=== PATIENT | female | born 1980 | race Caucasian/White ===

== ENCOUNTER 2016-12-03 22:43 | Inpatient (IN) | payer OTHER ==
[~2016-12-03] VITALS: Ht 157.5 cm; Wt 54.7 kg
[~2016-12-03 22:43] MED LIST: PREN-39 PO
[2016-12-03 22:49] VITALS: Ht 157.5 cm; Wt 54.7 kg
[2016-12-03 23:08] VITALS: BP 122/78; PULSE 75; RESP 18
[2016-12-03] MEDS ORDERED: LACTATED RINGER'S 1,000 ML IV SCH (23:36)
[2016-12-04] MEDS ORDERED: OXYTOCIN 30 UNITS/LR 500 ML IV SCH
[2016-12-04] MEDS ORDERED: CEFAZOLIN 2 GM/50 ML (PMX) 50 ML IV SCH
[2016-12-04] MEDS ORDERED: AMPICILLIN 2 GM/NS (PMX) 100 ML IV ONE
[2016-12-04] MEDS ORDERED: PHENYLephrine (100 MCG/ML) 5ML SYG ONE (02:31)
[2016-12-04] MEDS ORDERED: ONDANSETRON 4 MG INJ ONE (02:31)
[2016-12-04] MEDS ORDERED: OXYTOCIN 10 UNIT INJ ONE (02:31)
[2016-12-04] MEDS ORDERED: morphine SULFATE/PF (10 MG/10 ML) INJ ONE (02:31)
--- NOTE | 2016-12-04 02:37 | TRIAGE ---
OB Triage Datetime Report Generated by CPN: 12/04/2016 02:36 Datetime: 12/04/2016 02:32 Comments: PT SITTING UP FOR SPINAL, MONITOR TRACING MATERNAL HR Datetime: 12/04/2016 02:30 Comments: PT IN OR2 Datetime: 12/04/2016 02:00 Labor Evaluation Frequency: 1.5-5 Monitor Mode: External Duration (sec)2399: 40-80 Quality: Mild Pattern: Normal: <= 5 Contractions in 10 Minutes Resting Tone Amorita: Relaxed Interventions: Side to Side; Oxygen Applied Heart Rate FHR Baseline Rate: 150 Monitor Mode: External US Variability: Moderate 6-25 bpm Accelerations: 15X15 Decelerations: Late; Variable Category: Category II Pain Assessment Pain Scale: 9 Pain Presence: Intermittent Pain Type: Contraction Pain Location: Abdomen Datetime: 12/04/2016 01:00 Labor Evaluation Frequency: 3-5 Monitor Mode: External Duration (sec)2399: 40-80 Quality: Moderate Pattern: Normal: <= 5 Contractions in 10 Minutes Resting Tone Amorita: Relaxed Interventions: Side to Side Heart Rate FHR Baseline Rate: 145 Monitor Mode: External US Variability: Moderate 6-25 bpm Accelerations: 15X15 Decelerations: Late Category: Category II Pain Assessment Pain Scale: 8 Pain Presence: Intermittent Pain Type: Contraction Pain Location: Abdomen; Back Pain Relief Measures: Comfort Measures Datetime: 12/04/2016 00:58 Vaginal Exam Dilatation (cms): 1.0 Effacement (%): 80 Station: -2 Exam By: LAN RN Membrane Status: Intact Vaginal Bleeding: Normal Show Datetime: 12/04/2016 00:40 Assessment Type: Admission Assessment Maternal Assessment Level of Consciousness: Fully Conscious DTR's/Clonus: DTRs 2+; No Clonus Headache: Denies Blurred Vision: No Respiratory Effort: Unlabored; Regular Rhythm; Equal Expansion Breath Sounds, Left: Clear and Equal Breath Sounds, Right: Clear and Equal Nausea/Vomiting: Denies RUQ Epigastric Pain: Denies Lower Extremities Edema: None Degree: None Upper Extremities Edema: None Degree: None Facial Edema: None Fall Risk Assessment History of Falling: (0) No Secondary Diagnosis: (0) No Ambulatory Aid: (0) Bedrest/Nurse Assist IV Therapy: (20) Yes Gait: (0) Normal/Bedrest/Immobile Mental Status: (0) Oriented to Own Ability Fall Score: 20 Fall Risk Score Definition: No Risk: No action required Datetime: 12/04/2016 00:11 Stage of : Labor Datetime: 12/03/2016 23:17 Vaginal Exam Dilatation (cms): 0.5 Effacement (%): 70 Station: -1 Datetime: 12/03/2016 23:11 Time of Arrival: 12/03/2016 22:37 EGA: 38.4 Arrived By: Wheelchair Arrived From: Home Chief Complaint: UC's since 1999 Movement: Present Contractions: Regular Contractions: Q2-4mins Rupture of Membranes: Denies Vaginal Bleeding: None Vaginal Discharge: Denies Recent Sexual Intercouse: Denies Abdominal Trauma: Not Applicable Patient Complaints: Contractions Time Provider Notified: 12/03/2016 23:10 Provider Notified: Dr Paredes Initial Plan: EFM X2, SVE Datetime: 12/03/2016 23:10 Presentation 'A': Cephalic
--- NOTE | 2016-12-04 02:49 | HP ---
Date/Time of Note Date/Time of Note DATE: 12/04/16 TIME: 02:48 OB - History Hx of Present Chief Complaint: contractions Estimated Due Date: Dec 13, 2016 : 2 Para: 1 Spontaneous : 0 Therapeutic : 0 Care: Good Care Ultrasounds: Normal mid trimester US Obstetrical Complications: None Medical Complications: None Past Family/Social History * Past Medical, Surgical, Family and Obstetric Histories reviewed from chart. GBS Status: Positive OB Admission Exam Vital Signs Vital Signs Vital Signs Date Time Temp Pulse Resp B/P Pulse Ox O2 Delivery O2 Flow Rate FiO2 12/03/16 23:08 97.8 75 18 122/78 Room Air Physical Exam HEENT: WNL Heart: Rhythm Normal Lungs: Clear, Equal Abdomen: WNL Extremities: Normal Reflexes: Normal Cervical Dilatation: Fingertip Effacement: 50% Station: -1 Membranes: Intact Heart Rate: 130's Accelerations: Accelerations Present Decelerations: No Decelerations Varibility: Moderate Last 72 hours Lab Results CBC & BMP 12/04/16 00:30 OB Assessment/Plan Reason for admission: section Other Assessment: Previous c/s in labor Plan: Section JONO BRIONES MD Dec 04, 2016 02:49
--- NOTE | 2016-12-04 03:34 | SIPON ---
Date/Time of Note Date/Time of Note DATE: 12/04/16 TIME: 03:32 Operative Report Preoperative Diagnosis Previous c/s in labor Postoperative Diagnosis Same Operation/Procedure Performed Repeat c/s Surgeon Jono Briones MD payroll assistant Dr Peck Anesthesia: spinal Estimated blood loss: other (500 ml) Transfusion Required none Specimen placenta Grafts/Implants none Complications none JONO BRIONES MD Dec 04, 2016 03:34
--- NOTE | 2016-12-04 03:34 | SIPON ---
Date/Time of Note Date/Time of Note DATE: 12/04/16 TIME: 03:32 Operative Report Preoperative Diagnosis Previous c/s in labor Postoperative Diagnosis Same Operation/Procedure Performed Repeat c/s Surgeon Jono Briones MD assistant to the dean Dr Peck Anesthesia: spinal Estimated blood loss: other (500 ml) Transfusion Required none Specimen placenta Grafts/Implants none Complications none JONO BRIONES MD Dec 04, 2016 03:34
[2016-12-04] MEDS ORDERED: morphine 2 MG INJ IV PRN (04:00)
[2016-12-04] MEDS ORDERED: NALOXONE (0.4 MG/ML) INJ IV PRN (04:00)
[2016-12-04] MEDS ORDERED: ONDANSETRON 4 MG INJ IV PRN (04:00)
[2016-12-04] MEDS ORDERED: DIPHENHYDRAMINE 50 MG INJ IV PRN (04:00)
[2016-12-04] MEDS ORDERED: KETOROLAC 30 MG INJ IV PRN (04:00)
[2016-12-04] MEDS ORDERED: AMPICILLIN 1 GM/NS (PMX) 50 ML IV SCH (04:00)
[2016-12-04] MEDS: LACTATED RINGER'S 1,000 ML IV SCH ×3 (05:53→21:47)
[2016-12-04] MEDS ORDERED: MISOPROSTOL 200 MCG TAB PR PRN ×2 (06:00)
[2016-12-04] MEDS ORDERED: OXYTOCIN 30 UNITS/LR 500 ML IV PRN ×2 (06:00)
[2016-12-04] MEDS ORDERED: CARBOPROST 250 MCG INJ IM PRN ×2 (06:00)
[2016-12-04] MEDS ORDERED: LANOLIN 7 GM TUBE TOP PRN (06:00)
[2016-12-04] MEDS ORDERED: OXYCODONE/ACETAMINOPHEN (5/325) TAB PO PRN ×2 (06:00)
[2016-12-04] MEDS ORDERED: METHYLERGONOVINE 0.2 MG INJ IM PRN ×2 (06:00)
[2016-12-04 06:15] VITALS: BP 115/58; PULSE 89; RESP 19
[2016-12-04] MEDS: OXYTOCIN 30 UNITS/LR 500 ML IV SCH ×2 (06:18→09:53)
[2016-12-04] MEDS ORDERED: OXYTOCIN 30 UNITS/LR 500 ML BAG IV ONE (07:00)
[2016-12-04 08:00] VITALS: BP 104/53; PULSE 79; RESP 18
[2016-12-04] MEDS: SENNA/DOCUSATE NA (8.6MG/50MG) TAB PO SCH ×2 (09:49→21:43)
[2016-12-04 12:44] VITALS: BP 94/55; PULSE 76; RESP 16
[2016-12-04 16:00] VITALS: BP 104/57; PULSE 83; RESP 17
[2016-12-04 20:00] VITALS: BP 107/54; PULSE 88; RESP 19
[2016-12-05] VITALS (8 sets, daily range): BP systolic 103–113; BP diastolic 54–71; PULSE 63–85; RESP 18–20
[2016-12-05] MEDS: IBUPROFEN 800 MG TAB PO SCH ×3 (05:45→21:25)
[2016-12-05] MEDS: LACTATED RINGER'S 1,000 ML IV SCH (05:53)
[2016-12-05] MEDS: SENNA/DOCUSATE NA (8.6MG/50MG) TAB PO SCH ×2 (10:18→21:25)
--- NOTE | 2016-12-05 19:51 | QN ---
Documentation Comment No complaint Afebrile VSS Abdomen soft ND POD #1 Stable Ambulate Advance diet. JONO BRIONES MD Dec 05, 2016 19:51
--- NOTE | 2016-12-05 19:51 | QN ---
Documentation Comment No complaint Afebrile VSS Abdomen soft ND POD #1 Stable Ambulate Advance diet. JONO BRIONES MD Dec 05, 2016 19:51
--- NOTE | 2016-12-06 05:11 | OPR ---
DATE OF OPERATION: 12/04/2016 PREOPERATIVE DIAGNOSIS: at 38 weeks plus with previous section, in labor. POSTOPERATIVE DIAGNOSIS: at 38 weeks plus with previous section, in labor. OPERATION: Repeat low transverse section. SURGEON: Jono Paredes MD SR. PAYROLL PROCESSOR: Dr. Peck. ANESTHESIA: Spinal. ANESTHESIOLOGIST: Ze Russo MD. PROCEDURE: The patient was taken to the operating room and placed on the operating table. After breen ccessful spinal anesthesia was given, the patient was placed in supine position. The area was prepa red and draped in the usual sterile fashion. Spinal anesthesia was tested and was satisfactory. Us ing a scalpel, Pfannenstiel incision was made about 2 fingerbreadths above the symphysis pubis. The incision was carried to the fascia. The fascia was incised and extended bilaterally with Jean Baptiste scis sors. Two Barber's were used to separate the fascia from the muscle. The muscle was dissected in m idline down to peritoneum. The peritoneum was secured with 2 Kellys and incised with Metzenbaum sci ssors. Using a scalpel, a small transverse incision was made on the lower segment of the uterus. U viri entering the uterine cavity, bandage scissors were inserted to extend the incision bilaterally, curved up. Baby was delivered from cephalic presentation. After suctioning clear of amniotic fluid , the baby was handed off to the team in attendance. Apgars were 9 and 9. The placenta wa s delivered without difficulty. The uterus was closed with #1 Monocryl continuous locked. After as suring hemostasis, both ovaries and tubes were inspected, looked normal. The peritoneum was closed with 2-0 Vicryl continuous. The fascia was closed with #1 Vicryl continuous in 2 segments. Subcuta neous tissue was reapproximated with 2-0 plain. The skin was closed with anayeli. ESTIMATED BLOOD LOSS: 500 mL. COUNTS: All counts were correct. Dictated By: JONO PAREDES MD GD/NTS Conf#: [id number] DID#: [id number]
[2016-12-06] MEDS: IBUPROFEN 800 MG TAB PO SCH ×3 (06:24→22:03)
[2016-12-06 06:40] VITALS: BP 117/63; PULSE 68; RESP 19
[2016-12-06 08:00] VITALS: BP 115/70; PULSE 97; RESP 18
[2016-12-06] MEDS: SENNA/DOCUSATE NA (8.6MG/50MG) TAB PO SCH ×2 (09:41→21:00)
--- NOTE | 2016-12-06 13:18 | QN ---
Documentation Comment No complaint Afebrile VSS Abdomen soft ND Stable Continue present care. JONO BRIONES MD Dec 06, 2016 13:18
--- NOTE | 2016-12-06 13:18 | QN ---
Documentation Comment No complaint Afebrile VSS Abdomen soft ND Stable Continue present care. JONO BRIONES MD Dec 06, 2016 13:18
[2016-12-06 16:30] VITALS: BP 122/69; PULSE 87; RESP 20
[2016-12-06 19:40] VITALS: BP 127/71; PULSE 81; RESP 19
[2016-12-07 04:05] VITALS: BP 112/60; PULSE 67; RESP 20
[2016-12-07] MEDS: IBUPROFEN 800 MG TAB PO SCH ×2 (06:12→14:23)
[2016-12-07 08:40] VITALS: BP 123/81; PULSE 75; RESP 17
[2016-12-07] MEDS: SENNA/DOCUSATE NA (8.6MG/50MG) TAB PO SCH (09:00)
[2016-12-07] MEDS ORDERED: DIPHTH/TET/ACEL PERTUSS (ADULT) 0.5 ML VIAL IM* ONE (09:00)
[2016-12-07 16:15] VITALS: BP 104/68; PULSE 72; RESP 17
[2016-12-07 20:00] VITALS: BP 111/75; PULSE 74; RESP 17
--- NOTE | 2016-12-07 20:57 | DS ---
Date/Time of Note Date/Time of Note DATE: 12/07/16 TIME: 20:56 Obstetrical Discharge Record Final Diagnosis Final Diagnosis: Term delivered Section Section: Repeat Condition on Discharge Physical Assessment Voiding: Yes Bowel Movement: Yes Breast: Soft, non-tender, Filling Fundus: Firm Abdomen and Incision: Incision intact Calf Tenderness: No Patient Condition: Stable JOON BRIONES MD Dec 07, 2016 20:57
--- NOTE | 2016-12-07 20:57 | DS ---
Date/Time of Note Date/Time of Note DATE: 12/07/16 TIME: 20:56 Obstetrical Discharge Record Final Diagnosis Final Diagnosis: Term delivered Section Section: Repeat Condition on Discharge Physical Assessment Voiding: Yes Bowel Movement: Yes Breast: Soft, non-tender, Filling Fundus: Firm Abdomen and Incision: Incision intact Calf Tenderness: No Patient Condition: Stable JONO BRIONES MD Dec 07, 2016 20:57
== END 2016-12-07 21:35 | disposition home or self-care (01) | DRG 766 ==
LOC: L-D 22:43 → OBT 22:43 → L-D 23:35 → OBT 23:35 → PP1 12-04 06:14
PROVIDERS: ADMIT Obstetrics & Gynecology; ATTEND Obstetrics & Gynecology
PROC: 10D00Z1 Extraction of Products of Conception, Low, Open Approach (ICD-10-PCS; principal; 2016-12-04 02:45)
PROC: 3E0P3VZ Introduction of Hormone into Female Reproductive, Percutaneous Approach (ICD-10-PCS; 2016-12-06)
DX: O34.211 Maternal care for low transverse scar from previous cesarean delivery (principal); Z37.0 Single live birth; Z3A.38 38 weeks gestation of pregnancy
CPT/HCPCS: 85025; 85610; 85730; 86592; 86850; 86900; 86901; 87340; 90715; 94760; 99464; G0463; J0290; J0690; J1885; J2274; J2370; J2405; J2590; J7120